=== PATIENT | male | born 1950 | race Caucasian/White ===

== ENCOUNTER → 2020-06-17 | Outpatient (CLI) | payer OTHER ==
[~2020-06-17] MED LIST: ADVAIR HFA 230M12 GM INH; ASA81BEC PO; ASPIR 8181 MG PO; ATORVASTATIN CA80 MG PO; BUSPIRONE HCL7.5 MG PO; EFFIENT10 MG PO; FAMOTIDINE 40 M40 M1 PO; FLORANEX TABLE1 EACH PO; IMDUR 30 MG TAB30 M1 PO; LIPITOR40 MG PO; LISINOPRIL2.5 MG PO; LISINOPRIL20 MG PO; METFORMIN HCL500 M3 PO; NITROGLYCERIN0.4 MG SUBLING; NITROSTAT0.4 M1 SUBLING; OMEPRAZOLE40 MG PO; TYLENOL ARTHRI650 MG PO; VOLTAREN GEL 1100 G1 TOP; ZANTAC 150MG T150 M1 PO
== END ==
LOC: ULTRA 12:28
PROVIDERS: ATTEND Surgery Vascular Surgery
DX: Z01.818 Encounter for other preprocedural examination (principal); I25.10 Atherosclerotic heart disease of native coronary artery without angina pectoris

== ENCOUNTER → 2020-06-17 | Outpatient (CLI) | payer OTHER ==
[2020-06-17 13:25] LABS: ABSOLUTE NEUTROPHILS 4.7 thou/uL (1.4-8.2); EOSINOPHILS 1.8 % (0.0-3.0); HEMATOCRIT 45.3 % (42.0-52.0); HEMOGLOBIN 15.4 gm/dL (14.0-18.0); LYMPHOCYTES 20.4 % (24.0-44.0); MCH 28.5 pg (26.0-34.0); MCHC 34.1 g/dL (28.0-37.0); MCV 83.6 fL (80.0-100.0); MONOCYTES 7.6 % (1.0-8.0); PLATELET COUNT 204 thou/uL (150-400); POLYS 69.2 % (36.0-66.0); RBC 5.41 mil/uL (4.50-6.00); RDW 14.6 % (10.5-14.5); URINE BILIRUBIN NEGATIVE (Negative); URINE BLOOD NEGATIVE (Negative); URINE CLARITY CLEAR; URINE COLOR YELLOW; URINE GLUCOSE-RANDOM* NEGATIVE (Negative); URINE KETONES NEGATIVE (Negative); URINE LEUKOCYTES-REFLEX NEGATIVE (Negative); URINE NITRITE-REFLEX NEGATIVE (Negative); URINE PROTEIN (DIPSTICK) NEGATIVE (Negative); URINE SPECIFIC GRAVITY >= 1.030 (1.005-1.035); WBC 6.8 thou/uL (4.0-11.0)
[2020-06-17 13:37] LABS: ALBUMIN 3.7 g/dL (3.4-5.0); CALCIUM 8.6 mg/dL (8.5-10.1); POTASSIUM 4.4 mmol/L (3.5-5.1); TOTAL PROTEIN 7.2 g/dL (6.4-8.2)
[2020-06-17 13:39] LABS: APTT 27.6 Seconds (24.5-32.8); PROTIME 10.9 Seconds (10.5-12.1)
[2020-06-17 23:06] LABS: GLYCOHEMOGLOBIN (HGB A1C) 7.9 % (4.8-5.6)
== END ==
LOC: PAC 09:38 → LAB 12:20 → PAC 12:20
PROVIDERS: Surgery Vascular Surgery; ATTEND Student in an Organized Health Care Education/Training Program
DX: Z01.812 Encounter for preprocedural laboratory examination (principal); Z20.822 Contact with and (suspected) exposure to COVID-19

== ENCOUNTER 2020-06-20 06:22 | Inpatient (IN) | payer OTHER ==
[~2020-06-20] VITALS: Ht 177.8 cm; Wt 106.8 kg
[2020-06-20] VITALS (8 sets, daily range): BP systolic 74–170; BP diastolic 45–93
[2020-06-20 12:56] LABS: HEMATOCRIT 27.7 % (42.0-52.0); MCH 28.7 pg (26.0-34.0); MCHC 34.4 g/dL (28.0-37.0); MCV 83.6 fL (80.0-100.0); RBC 3.31 mil/uL (4.50-6.00); RDW 14.4 % (10.5-14.5); WBC 9.9 thou/uL (4.0-11.0)
[2020-06-20 13:00] LABS: HEMOGLOBIN 9.5 gm/dL (14.0-18.0)
[2020-06-20 13:15] LABS: APTT 26.8 Seconds (24.5-32.8)
[2020-06-20 13:19] LABS: INR 1.5
[2020-06-20 14:10] LABS: POC BE -1 mmol/L (-2.0 to +3.0); POC CA IONIZED 4.8 mg/dL (4.5-5.3); POC GLUCOSE 145 mg/dL (70-99); POC HCO3 24.8 mmol/L (22.0-26.0); POC HEMOGLOBIN 13.3 g/dL (14.0-18.0); POC POTASSIUM 4.7 mmol/L (3.5-5.1); POC SODIUM 138 mmol/L (136-145); POC pCO2 46.5 mmHg (35.0-45.0); POC pH 7.335 (7.360-7.450)
[2020-06-20 14:10] LABS: POC BE -2 mmol/L (-2.0 to +3.0); POC CA IONIZED 4.3 mg/dL (4.5-5.3); POC GLUCOSE 169 mg/dL (70-99); POC HCO3 23.2 mmol/L (22.0-26.0); POC HEMOGLOBIN 10.2 g/dL (14.0-18.0); POC POTASSIUM 5.5 mmol/L (3.5-5.1); POC SODIUM 139 mmol/L (136-145); POC pH 7.393 (7.360-7.450)
[2020-06-20 14:10] LABS: POC BE 0 mmol/L (-2.0 to +3.0); POC CA IONIZED 4.3 mg/dL (4.5-5.3); POC GLUCOSE 143 mg/dL (70-99); POC HCO3 24.7 mmol/L (22.0-26.0); POC HEMOGLOBIN 10.9 g/dL (14.0-18.0); POC POTASSIUM 5.5 mmol/L (3.5-5.1); POC SODIUM 138 mmol/L (136-145); POC pCO2 39.9 mmHg (35.0-45.0); POC pH 7.399 (7.360-7.450)
[2020-06-20 14:11] LABS: POC BE 0 mmol/L (-2.0 to +3.0); POC CA IONIZED 4.3 mg/dL (4.5-5.3); POC GLUCOSE 169 mg/dL (70-99); POC HEMOGLOBIN 9.2 g/dL (14.0-18.0); POC POTASSIUM 4.7 mmol/L (3.5-5.1); POC SODIUM 140 mmol/L (136-145); POC pCO2 39.4 mmHg (35.0-45.0); POC pH 7.411 (7.360-7.450)
[2020-06-20 14:11] LABS: POC BE -1 mmol/L (-2.0 to +3.0); POC CA IONIZED 5.2 mg/dL (4.5-5.3); POC GLUCOSE 149 mg/dL (70-99); POC HCO3 24.4 mmol/L (22.0-26.0); POC HEMOGLOBIN 15.3 g/dL (14.0-18.0); POC POTASSIUM 4.6 mmol/L (3.5-5.1); POC SODIUM 139 mmol/L (136-145); POC pCO2 42.3 mmHg (35.0-45.0); POC pH 7.369 (7.360-7.450)
[2020-06-20 14:11] LABS: POC BE -5 mmol/L (-2.0 to +3.0); POC CA IONIZED 4.8 mg/dL (4.5-5.3); POC GLUCOSE 133 mg/dL (70-99); POC HCO3 20.5 mmol/L (22.0-26.0); POC HEMOGLOBIN 9.9 g/dL (14.0-18.0); POC POTASSIUM 4.3 mmol/L (3.5-5.1); POC SODIUM 142 mmol/L (136-145); POC pCO2 36.8 mmHg (35.0-45.0); POC pH 7.354 (7.360-7.450)
[2020-06-20 14:11] LABS: POC BE -1 mmol/L (-2.0 to +3.0); POC CA IONIZED 5.2 mg/dL (4.5-5.3); POC GLUCOSE 141 mg/dL (70-99); POC HCO3 24.1 mmol/L (22.0-26.0); POC HEMOGLOBIN 8.8 g/dL (14.0-18.0); POC POTASSIUM 4.2 mmol/L (3.5-5.1); POC SODIUM 140 mmol/L (136-145); POC pCO2 42.7 mmHg (35.0-45.0)
[2020-06-20 14:11] LABS: POC BE 0 mmol/L (-2.0 to +3.0); POC CA IONIZED 4.2 mg/dL (4.5-5.3); POC GLUCOSE 170 mg/dL (70-99); POC HCO3 24.7 mmol/L (22.0-26.0); POC HEMOGLOBIN 9.2 g/dL (14.0-18.0); POC SODIUM 139 mmol/L (136-145); POC pCO2 39.7 mmHg (35.0-45.0); POC pH 7.402 (7.360-7.450)
[2020-06-20 14:11] LABS: POC BE -4 mmol/L (-2.0 to +3.0); POC CA IONIZED 4.8 mg/dL (4.5-5.3); POC GLUCOSE 129 mg/dL (70-99); POC HCO3 21.8 mmol/L (22.0-26.0); POC HEMOGLOBIN 8.8 g/dL (14.0-18.0); POC POTASSIUM 4.3 mmol/L (3.5-5.1); POC SODIUM 142 mmol/L (136-145); POC pCO2 38.1 mmHg (35.0-45.0); POC pH 7.365 (7.360-7.450)
[2020-06-20 15:32] LABS: HEMATOCRIT 29.7 % (42.0-52.0); HEMOGLOBIN 10.1 gm/dL (14.0-18.0); MCH 28.3 pg (26.0-34.0); MCHC 33.9 g/dL (28.0-37.0); MCV 83.4 fL (80.0-100.0); RBC 3.56 mil/uL (4.50-6.00); RDW 14.4 % (10.5-14.5); WBC 10.6 thou/uL (4.0-11.0)
[2020-06-20 15:47] LABS: APTT 27.1 Seconds (24.5-32.8); INR 1.15; PROTIME 12.5 Seconds (10.5-12.1)
[2020-06-20 15:49] LABS: CALCIUM 8.1 mg/dL (8.5-10.1); MAGNESIUM 2.3 mg/dL (1.8-2.4); POTASSIUM 4.7 mmol/L (3.5-5.1)
[2020-06-20 16:16] LABS: BE(vivo) -6.2 mmol/L (-2 to +3); HCO3 18.4 mmol/L (22.0-26.0); PO2 93.4 mmHg (80.0-100.0); pH 7.363 (7.360-7.450)
--- NOTE | 2020-06-20 19:32 | NUR ---
1500-FROM O.R. W OH TEAM IN ATTENDANCE. BP VERY LABILE UPON ARRIVAL.--VW 1600-STARTING TO WAKE UP,FOLLOWS SIMPLE 1 STEP COMMANDS. DTR & SON AT BEDSIDE.--VW 1710-PT AWAKE,RESTLESS p KIDS LEFT. NODS YES TO PAIN,10/10 W FINGERS.BP W SUDDEN INCREASE TO 200/100'S W PA'S 50/30'S-FENTANYL GIVEN. PT ON/OFF PROPOFOL/CARDENE/SHIVANI/LEVO BPS 70'S THEN 180'S. IN UNIT &IN TO SEE PT.PT SETTELING DOWN & WILL TRY PRECEDEX. FFP & CRYO GIVEN EARLIER W/O PROBLEMS.--VW 1830- IN EARLIER TO SEE PT. SPOKE W RE:CONSULT EARLIER. PER ADRIANNA, CARDIOLOGY WILL BE CONSULTED IN AM. FIO2 TO .50% p PRECEDEX STARTED AT VERY LOW DOSE.--VW 1900-DTR MELISSA CALLED, UPDATE GIVEN. CARE TURNED OVER TO ONCOMING RN.--VW
[2020-06-20 20:05] LABS: CALCIUM 8.2 mg/dL (8.5-10.1); CREATININE 1.2 mg/dL (0.7-1.3); POTASSIUM 4.1 mmol/L (3.5-5.1)
[2020-06-20 20:14] LABS: BE(vivo) -4.4 mmol/L (-2 to +3); HCO3 19.3 mmol/L (22.0-26.0); PCO2 30.5 mmHg (35.0-45.0); PO2 101.4 mmHg (80.0-100.0); pH 7.419 (7.360-7.450); sO2 97.8 % (92.0-98.0)
[2020-06-20 21:11] LABS: BE(vivo) -3.8 mmol/L (-2 to +3); PCO2 31.7 mmHg (35.0-45.0); pH 7.418 (7.360-7.450); sO2 96.9 % (92.0-98.0)
--- NOTE | 2020-06-20 22:36 | NUR ---
Pt care assumed at 193. Hemodynamics stable, pt on Phenylnephrine 30 mcg/min for BP support. Insulin gtt being titrated to keep blood glucose between 90-170. Pt's FiO2 titrated down to 40% at 1999. Pt placed on CPAP at 2029 and tolerated well with Precedex gtt at 0.2 mcg/kg/hr. Pt extubated at 2129 and placed on Bipap 14/6, FiO2 50%. Pt's sat has remained 98-100%, respiratory rate in mid-20's. Pt's daughter, Dara, called at 2139 and updated on pt's extubation and status.
[2020-06-21] VITALS (9 sets, daily range): BP systolic 87–125; BP diastolic 45–67
--- NOTE | 2020-06-21 02:21 | NUR ---
Pt becoming bradycardic with rates dropping down to 49-56, though bouncing back up to low 70's in less than 1 minute. SBP 98-102 and urine output 25 cc over last hour. Precedex turned off, 250 cc 5% albumin given, and Phenylnephrine increased to 35 mcg/min. SBP now 116-120, heart rate 60-74. Pt drowsy but arouses easily to voice.
[2020-06-21 05:08] LABS: HEMATOCRIT 25.6 % (42.0-52.0); HEMOGLOBIN 8.7 gm/dL (14.0-18.0); MCH 28.5 pg (26.0-34.0); MCHC 33.9 g/dL (28.0-37.0); MCV 84.2 fL (80.0-100.0); RBC 3.04 mil/uL (4.50-6.00); RDW 14.4 % (10.5-14.5); WBC 8.8 thou/uL (4.0-11.0)
[2020-06-21 05:23] LABS: CALCIUM 8.1 mg/dL (8.5-10.1); CREATININE 1.1 mg/dL (0.7-1.3); MAGNESIUM 2.4 mg/dL (1.8-2.4)
--- NOTE | 2020-06-21 06:48 | EKG ---
[place] [address] [facility] [place] [address] ELECTROCARDIOGRAM REPORT Name: ANTHONY BROWN Room #: 248-P ADM IN M.R.#: [id number] Admission: 06/20/20 Attend Phys: Chaz Llanos MD Discharge: Date of : 48 Report #: [id number] [facility] Test Date: 2020-06-20 Test Time: 16:05:30 Pat Name: ANTHONY BROWN Department: Room: 248 Gender: M Insulation Cutter: FSCHWALBE : 1950 Requested By: Tray Villaseñor Order Number: [id number] : Russel Reed Measurements Intervals [place] Rate: 80 P: 47 ME: 186 QRS: -5 QRSD: 100 T: 15 QT: 401 QTc: 463 Interpretive Statements Sinus rhythm Low voltage, precordial leads No previous ECG available for comparison Electronically Signed On 06-21-2020 6:48:07 CDT by Russel Reed [email or web address] <ELECTRONICALLY SIGNED> By: Russel Reed MD, [facility] 06/21/20 0648 1605 1605 Russel Reed MD, FACC /EPI
--- NOTE | 2020-06-21 07:30 | NUR ---
DR. CRUZ AND ADRIANNA PITTMAN HERE. UPDATE GIVEN. EKG SHOWN TO ADRIANNA PITTMAN. ORDERS GIVEN. PT CURRENTLY IN CHAIR POSITION. WEANING OFF SHIVANI. WILL STOP INSULIN GTT PER ORDERS. PT REPORTS PAIN TOLORABLE AT 2 OF 10
--- NOTE | 2020-06-21 07:30 | NUR ---
Updated pt daughter Dara. Emotional support given.
--- NOTE | 2020-06-21 07:39 | NUR ---
Slow progress toward goals. Pt tolerates Bipap well, currently on 01/13 with FiO2 of 35%. Able to take break x1 hour on 4 L nasal canula but then desaturated down to 89-90% and was placed back on Bipap. Remains on Phenylnephrine to keep SBP >90. Monitor remains sinus rhythm with BBB since Amiodorone and Precedex dc'd. Remains on insulin gtt to control blood glucose. Urine output adequate, 619 cc for this shift. Mediastinal CT x2 to -20 mmHg had 240 cc serosanguinous drainage this shift, no air leak or crepitus. Left plural CT x1 to -20 mmHg had 50 cc sanguinous drainage, no air leak or crepitus.
--- NOTE | 2020-06-21 07:49 | NUR ---
S/P CABG on 06/20. Will address nutrition education needs once stable and out of ICU
--- NOTE | 2020-06-21 09:00 | NUR ---
Pt sister called for update. Marilee Bowser given update.
--- NOTE | 2020-06-21 09:15 | NUR ---
taken off Bipap for pills. 6L nasal cannula. Tolorating well. Ate some jello and drank apple juice and nino mist.
[2020-06-21 09:53] LABS: FOLIC ACID 10.4 ng/mL (8.6-58.9)
--- NOTE | 2020-06-21 12:00 | EKG ---
[place] [address] [facility] [place] [employer] [place] [address] ELECTROCARDIOGRAM REPORT Name: ANTHONY BROWN Room #: 248-P ADM IN M.R.#: [id number] Admission: 06/20/20 Attend Phys: Chaz Llanos MD Discharge: Date of : 48 Report #: [id number] [facility] Test Date: 2020-06-21 Test Time: 07:41:06 Pat Name: ANTHONY BROWN Department: Room: 248 P Gender: M Turf Sales Person: JOSE ELIAS : 1950 Requested By: Tray Villaseñor Order Number: [id number] MD: Russel Reed Measurements Intervals [place] Rate: 80 P: 11 RI: 138 QRS: -9 QRSD: 100 T: -44 QT: 391 QTc: 451 Interpretive Statements Sinus rhythm Abnormal R-wave progression, early transition Left ventricular hypertrophy Inferior infarct, age indeterminate Compared to ECG 06/20/2020 16:05:30 Left ventricular hypertrophy now present Myocardial infarct finding now present Electronically Signed On 06-21-2020 12:00:21 CDT by Russel Reed [email or web address] <ELECTRONICALLY SIGNED> By: Russel Reed MD, [facility] 06/21/20 1200 0 0 Russel Reed MD, [facility] /EPI
--- NOTE | 2020-06-21 12:00 | NUR ---
PT DAUGHTER HERE. UPDATE GIVEN. CORRECT CODE GIVEN. NO INSULIN FOR LUNCH SINCE PT HAS BEEN EATING JELLO, ICEES ETC RECENTLY. PT DID NOT WANT SOLID FOOD FOR LUNCH.
--- NOTE | 2020-06-21 12:16 | NUR ---
pod # 1 cabg. cm visited with pt at bedside after am rounds and los. he up in chair with physical therapy assistance. daughter who is resp therapist here at bedside visiting. jacek goes by abiel, he lives in mobile house, no steps, has ramp. independent, drives vehicle, he takes his neighbored lady friend to run errands. no rehab or hh in past, have walker with seat that do not use. no anticipated dc over the weekend. education on rehab, hh and outpt rehab. will cont following as needed for dc needs.
--- NOTE | 2020-06-21 18:28 | NUR ---
end of shift note. Pt OOB to chair. Tolorating well. Poor appitite but drinking health shakes. Pain under control with hydrocodone.
[2020-06-22] VITALS (25 sets, daily range): BP systolic 100–155; BP diastolic 45–76
[2020-06-22 05:06] LABS: HEMATOCRIT 23.7 % (42.0-52.0); HEMOGLOBIN 8.1 gm/dL (14.0-18.0); MCH 28.3 pg (26.0-34.0); MCHC 33.9 g/dL (28.0-37.0); MCV 83.3 fL (80.0-100.0); RBC 2.85 mil/uL (4.50-6.00); RDW 14.5 % (10.5-14.5); WBC 7.3 thou/uL (4.0-11.0)
[2020-06-22 05:20] LABS: ALBUMIN 2.9 g/dL (3.4-5.0); CALCIUM 7.8 mg/dL (8.5-10.1); POTASSIUM 3.7 mmol/L (3.5-5.1); TOTAL BILIRUBIN 1.6 mg/dL (0.2-1.0); TOTAL PROTEIN 5.5 g/dL (6.4-8.2)
--- NOTE | 2020-06-22 10:00 | NUR ---
DR. CRUZ STATES TO LEAVE PT DUNBAR IN UNTIL FLOMAX HAS HAD TIME TO WORK. UPDATE GIVEN.
--- NOTE | 2020-06-22 10:25 | O ---
[facility] [place] [address] OPERATIVE REPORT Name: ANTHONY BROWN Room #: 248-P [facility] IN M.R.#: [id number] Admission: 06/20/20 Attend Phys: Chaz Llanos MD Discharge: Date of : 48 Report #: [id number] THIS REPORT FOR: cc: Cory Cano Steven D. DO Forman, John M. MD ~ DOC #: [id number] Chaz Llanos MD DATE OF SERVICE: 06/20/2020 PREOPERATIVE DIAGNOSIS: Coronary artery disease. POSTOPERATIVE DIAGNOSIS: Coronary artery disease. OPERATIONS: Coronary artery bypass x 4 including left internal mammary artery to left anterior descending artery, saphenous vein to diagonal and marginal, and saphenous vein to posterior descending artery and endoscopic harvest left greater saphenous vein. SURGEON: Dr. Chaz Llanos. TIMEKEEPING SUPERVISOR: MICK Ambrocio ANESTHESIA: General. INDICATIONS: The patient is a 69-year-old with coronary artery disease, seen by Dr. Rivera. The patient has a tight distal left main stenosis that involves the origin of the LAD. The patient also has in-stent stenosis of previous LAD stent, right coronary has moderate disease. Left ventricular function is satisfactory, but the patient has both obstructive and restrictive lung disease. FINDINGS AND TECHNIQUES: After general anesthesia was established, saphenous vein was harvested using an endoscopic approach and prepared for use as a conduit. Exposure was obtained through median sternotomy. Left internal mammary artery was harvested from chest wall. Pericardial well was made. Cannulation sutures were placed. Heparin was given. Aorta was cannulated. Right atrium was cannulated. Cardioplegia needle was positioned in the aortic root. Retrograde cardioplegic catheter was placed in the coronary sinus. Cardiopulmonary bypass was established. Aorta was cross clamped. Antegrade and retrograde cardioplegia were given. Ice was poured in the pericardial well. The heart was stopped. During electromechanical arrest, the distal anastomoses were performed. An end-to-side anastomosis was made between vein and the posterior descending [facility] [address] [place] [address] OPERATIVE REPORT Name: ANTHONY BROWN Room #: 248-P [facility] IN M.R.#: [id number] Admission: 06/20/20 Attend Phys: Chaz Llanos MD Discharge: Date of : 48 Report #: [id number] artery. Cold cardioplegia was given. Separate segment of vein was sewn in end-to-side fashion to the large second marginal artery. Cold cardioplegia was given. Same segment of vein was sewn in end-to-side fashion to the diagonal artery. Cold cardioplegia was given. Two proximal anastomoses were performed. When these were complete, warm retrograde cardioplegia was given followed by warm continuous blood through the coronary sinus. When this infusion was complete, the crossclamp was removed. De-airing maneuvers were performed and anastomoses were inspected and found to be satisfactory. As the patient warmed, nice cardiac activity resumed, chest tubes and pacing wires were placed. A marker was placed in proximal anastomosis. When the patient was warmed, he was weaned from cardiopulmonary bypass. Venous cannula was removed. Protamine was given, the aortic cannula was removed. Flows were measured in the bypass grafts. When hemostasis was satisfactory, chest was irrigated with antibiotic solution and closed in the usual fashion. The patient was taken to the intensive care unit in satisfactory condition, having tolerated the procedure well. All counts were reported as correct. Chaz Llanos MD JF/ALL <ELECTRONICALLY SIGNED> By: Chaz Llanos MD 06/22/20 1025 1507 1535 Chaz Llanos MD /nt
[2020-06-22 17:29] LABS: URINE BILIRUBIN NEGATIVE (Negative); URINE BLOOD 2+ (Negative); URINE CLARITY CLEAR; URINE COLOR YELLOW; URINE GLUCOSE-RANDOM* 1+ (Negative); URINE KETONES TRACE (Negative); URINE LEUKOCYTES-REFLEX NEGATIVE (Negative); URINE NITRITE-REFLEX NEGATIVE (Negative); URINE PROTEIN (DIPSTICK) 1+ (Negative); URINE SPECIFIC GRAVITY >= 1.030 (1.005-1.035); URINE UROBILINOGEN 0.2 E.U./dl (0.2-1.0)
[2020-06-22 17:37] LABS: CASTS None Seen /LPF (None Seen); SQUAMOUS None Seen /LPF (0-3); URINE RBC 3-10 Few /HPF (NONE SEEN); URINE WBC-REFLEX None Seen /HPF (0-5)
[2020-06-22 17:38] LABS: BACTERIA-REFLEX None Seen /HPF (None Seen); CRYSTALS None Seen /LPF (None Seen)
--- NOTE | 2020-06-22 18:14 | NUR ---
Pt progressing towards goals. Stronger today. Walked around the bed with PT and this RN. Less anxious. Unable to wean 02. Pushing IS and coughing and deep breathing. Aurelia remains in per Dr. Llanos's request. Pleural output recorded.
[2020-06-23] VITALS (14 sets, daily range): BP systolic 101–142; BP diastolic 47–63
--- NOTE | 2020-06-23 06:00 | NUR ---
PT AWAKE AND ALERT NEURO INTACT A RATHER FLAT AFFECTAT TIMES SINUS RHYTHM PT REFUSED TO GET BACK IN BED. REMAINED UP IN CHAIR ALL NIGHT. TITRATED O2 DOWN TO 2 LITERS NC. LUNGS DIMINISHED BILAT. EXCELLENT COUGH EFFORT NON PRODUCTIVE. STERNAL DRESSING WITH WOUND VAC LEFT PLEURAL TUBE 100 CC OUT AND DUNBAR 550 CC OUT. CHEST AND LEFT LEG DRESSINGS INTACT. HAD A SMALL LIGHT BROWN LIQ STOOL THIS AM. BATHED. PROGRESSING TOWARD GOALS. WILL CONT TO MONITOR.
--- NOTE | 2020-06-23 10:46 | NUR ---
4622- Report was called to DENILSON Figueroa on CCU for continuation of nursing care services once patient transfered. Patient going from room 248 in ICU, to room 213 in CCU. 1000- Patient called his daughter on her phone to inform her of patients room change, she did not answer phone call. Nurse to try again. 1020- Patient transferred to CCU via chair. He was transferred with cell phone, gifted program teacher, computer, computer gifted program teacher, glasses, dentures, and other belongings. [place] double checked for any further belongings. He was transferred on 3 Liters nasal cannula, with cardiac monitoring system, chest tubes, and wound vac system. He was hooked up to wall suction for the chest tube, wound vac plugged in, oxygen connected to hurt, and his close belongings with him. He had his call light with him and chair alarm in place when RN left the room.
--- NOTE | 2020-06-23 17:32 | NUR ---
PT CARE ASSUMED AT 1020. ASSESSMENTS CHARTED. MEDICATIONS CHARTED. RH IV. SINUS RHYTHM. WOUND VAC TO MID STERNUM. CABG X4. TRANSFER FROM 248 ICU TO 213 CCU. LT PLEURAL CHEST TUBE. PACER WIRES; PRESENT AND CAPPED. IS AT 1000 ML. BSC: BM, SM SEMI LIQUID. DIET-CC, FLUID RESTRICTION OF 2000 ML.
--- NOTE | 2020-06-24 03:59 | NUR ---
PT BEEN RESTING IN NO ACUTE DISTRESS.A/OX4.VSS.S/P CABG X4 POD#5.WOUND VAC ON STERNUM INCISION TO SUCTION.CT INTACT TO SUCTION.UP W/ASSIST.REMAINS ON O2 AT 2LITERS PNC,SATS [place],SR ON MONITOR.REPORTED MILD PAIN OF 3/10,PAIN MEDS OFFERED BUT DECLINED.DENIES CHEST PAIN,SOA OR ANY OTHER CONCERNS.PT/OT ON BOARD.
[2020-06-24 04:08] VITALS: BP 123/56
[2020-06-24 04:48] LABS: ALBUMIN 2.6 g/dL (3.4-5.0); CALCIUM 8.2 mg/dL (8.5-10.1); CREATININE 0.9 mg/dL (0.7-1.3); POTASSIUM 3.8 mmol/L (3.5-5.1); TOTAL BILIRUBIN 1.3 mg/dL (0.2-1.0); TOTAL PROTEIN 5.8 g/dL (6.4-8.2)
[2020-06-24 04:51] LABS: ABSOLUTE NEUTROPHILS 5.8 thou/uL (1.4-8.2); BASOPHILS 0.4 % (0.0-2.0); EOSINOPHILS 2.4 % (0.0-3.0); HEMATOCRIT 26.4 % (42.0-52.0); HEMOGLOBIN 8.8 gm/dL (14.0-18.0); LYMPHOCYTES 11.6 % (24.0-44.0); MCH 28.2 pg (26.0-34.0); MCHC 33.5 g/dL (28.0-37.0); MCV 84.3 fL (80.0-100.0); MONOCYTES 8.8 % (1.0-8.0); PLATELET COUNT 154 thou/uL (150-400); POLYS 76.8 % (36.0-66.0); RBC 3.13 mil/uL (4.50-6.00); RDW 14.9 % (10.5-14.5); WBC 7.5 thou/uL (4.0-11.0)
[2020-06-24 07:20] VITALS: BP 111/53
--- NOTE | 2020-06-24 08:53 | EKG ---
[address] [place] [place] [address] ELECTROCARDIOGRAM REPORT Name: ANTHONY BROWN Room #: 213-P ADM IN M.R.#: [id number] Admission: 06/20/20 Attend Phys: Chaz Llanos MD Discharge: Date of : 48 Report #: [id number] [facility] Test Date: 2020-06-24 Test Time: 07:11:33 Pat Name: ANTHONY BROWN Department: Room: 213 P Gender: M Senior Loss Control Specialist: JOSE ELIAS : 1950 Requested By: Chaz Llanos Order Number: [id number] MD: Eduardo Roman Measurements Intervals [place] Rate: 81 P: 25 AK: 123 QRS: -10 QRSD: 99 T: -31 QT: 441 QTc: 512 Interpretive Statements Sinus rhythm Borderline T abnormalities, inferior leads Prolonged QT interval Compared to ECG 06/21/2020 07:41:06 Prolonged QT interval now present Electronically Signed On 06-24-2020 8:52:55 CDT by Eduardo Roman [email or web address] <ELECTRONICALLY SIGNED> By: Eduardo Roman MD, [facility] 06/24/20 0852 0 0 Eduardo Roman MD, FACC /EPI
[2020-06-24 11:00] VITALS: BP 125/59
[2020-06-24 16:15] VITALS: BP 117/56
--- NOTE | 2020-06-24 17:09 | NUR ---
spoke with dtr and patient. Dtr feels patient needs post acute care. She is unable to assist at home for patient. He resides alone and dtr feels he needs cont therapy in skilled rehab. Dtr reports she is trying to change her work schedule to accomadate helping patient at home but unable at this time. Emailed post acute list to dtr and gave list to patient to review.
[2020-06-24 19:43] VITALS: BP 113/53
[2020-06-25 03:31] VITALS: BP 131/53
--- NOTE | 2020-06-25 04:44 | NUR ---
PT BEEN RESTING IN NO ACUTE DISTRESS.A/OX3 W/FORGETFULNESS.VSS.S/P CABGX4 POD#5.STERNUM INCISION INTACT WITH WOUND VAC TO SUCTION.TOLERATED BIPAP FOR ABOUT 3HRS.UP W/ASSIST TO BR.AMBULATED IN THE ROOM,HUBER NOTED.O2 AT 2LITERS PNC WHILE SLEEPING.PT DENIES PAIN AT THIS TIME.PT PROGRESSING FAIRLY TOWARDS DISCHARGE GOALS.
[2020-06-25 07:27] VITALS: BP 120/55
--- NOTE | 2020-06-25 10:31 | NUR ---
Assess for length of stay. S/P CABG. Hx diabetes, A1C 7.9%. Visit with pt this am, voiced exhausted. Eating well 50-100% of meals and likes the glucerna shakes so will continue to offer. Pt not interested in nutrition education at this time. Has written materials for home. Low nutrition risk
[2020-06-25 10:44] VITALS: BP 113/47
--- NOTE | 2020-06-25 14:04 | NUR ---
Dtr called this am. Left dtr message of return call. Sister Marilee Bowser called and reports dtr of patient Dara works nights and asked sister to assist with dc planning. Sister reports she not in best health and cannot assist with care of patient in home. She has [facility] list and reviewed with dtr. Interest in [facility] and [facility]. Referral and call placed to their admissions to review.
[2020-06-25 15:05] VITALS: BP 123/60
--- NOTE | 2020-06-25 17:12 | NUR ---
assessment as charted - meds as per mar - no co's of pain or nausea - veronica diet and fluids - pt states he feels he does not have much of an appitite. accuchecks as charted - covered per ssi prn. pt seen by phys therapy - ambulated in the halls - seen by cardiac rehab. wound vac remians insitu - dressing to la lag c/d/i. new iv place to left hand patient pulled old iv out. up to the bathroom to stool and \clean up this am- no co's at the present time.
--- NOTE | 2020-06-25 17:19 | NUR ---
Referrals to [facility] and [facility]. Discussed with patient post acute care and referrals sent for review. Sp with dtr this afternoon. her first choice is [facility]. Messaged liason to submit for auth if accepted. Faxed referral packet to [facility] as well. Reviewed visitor policy for [facility] with dtr.
[2020-06-25 20:15] VITALS: BP 119/61
[2020-06-26 04:45] VITALS: BP 102/59
--- NOTE | 2020-06-26 05:55 | NUR ---
ASSUME CARE 1900. PT/VITALS STABLE. DENIES ANY PAIN. MDERATE TOLERANCE TO ACTIVITY. PT IN RECLINER FOR THE WHOLE NIGHT. POOR TOLERANCE TO BIPAP, ADEQUATE SPO2 ON ROOM AIR. ASSESSMENT CHARTED. PROGRESSING WELL WITH POC. SR ON MONITOR/NO DISTRESS NOTED. PLAN IS TO CONSULT INPATIENT REHAB FOR EVALUATION AND TREATMENT, UNTIL SNF PLACEMENT IS FOUND. WILL CONTINUE TO MONITOR AND FOLLOW WITH POC
[2020-06-26 07:49] VITALS: BP 130/58
[2020-06-26 11:27] VITALS: BP 117/63
--- NOTE | 2020-06-26 12:40 | NUR ---
ASSESSMENT A CHARTED - MEDS PER GALILEA REYNOLDS DIET AND FLUIDS- UP WITH CARDIAC REHAB AND PHYS THERAPY - AMBUALATING IN WINTERS - SOB WITH EXERTION. ACCUCHECKS CHARTED - REPORT GIVEN TO NURSE AND CARE TRANSFERED AT 1100.
--- NOTE | 2020-06-26 13:14 | HC ---
[facility] [place] [address] CONSULTATION Name: ANTHONY BROWN Room #: 213-P ADM IN M.R.#: [id number] Admission: 06/20/20 Attend Phys: Patrick Merritt MD Discharge: Date of : 48 Report #: [id number] THIS REPORT FOR: cc: Cory Cano Steven D. DO Blick, David R. MD [facility] ~ DOC #: [id number] Rolando Caballero MD [facility] DATE OF SERVICE: 06/24/2020 HISTORY OF PRESENT ILLNESS: The patient is a 69-year-old single white male who I was asked to see in the hospital today after he had coronary artery bypass surgery. The patient has a long history of hypertension and smoking. He presented last in 11/2018 with a non-STEMI at [place]. He had stents placed in the LAD as well as a circumflex. Since that time, he continues to complain of shortness of breath and chest pain. Dr. Vazquez performed repeat cardiac catheterization that showed an 80% narrowing of the left main artery and a high-grade stenosis of the LAD and right coronary artery. Ejection fraction 60%. He referred the patient to Dr. Chaz Llanos who saw the patient in the office on 06/12/2020. He recommended coronary bypass surgery. The patient was admitted electively here to [facility] on 06/20/2020 and underwent quadruple coronary bypass surgery including VAZQUEZ graft to the LAD with vein graft to the posterior descending artery, marginal artery and diagonal artery. He was subsequently extubated. He was transferred out of the intensive care unit. He is now in the CCU recovering. He has been ambulating short distances. He has noted some soreness of his chest, but denies any heaviness, shortness of breath, cough, palpitations or syncope. PAST MEDICAL AND SURGICAL HISTORY: Otherwise, he has had cholecystectomy, wrist surgery, hypertension, hyperlipidemia, COPD. CURRENT MEDICATIONS: Include aspirin, Lipitor, lisinopril, omeprazole. He stopped Effient 5 days prior to admission. ALLERGIES: He has no known drug allergies. FAMILY HISTORY: Negative for heart disease. SOCIAL HISTORY: He is . He and his live in [place]. He is a retired sheet rock nailer. Quit smoking 7 years ago. No alcohol abuse. REVIEW OF SYSTEMS: No history of stroke. He does have COPD and uses inhaler. No history of liver disease, kidney disease, cancer. He saw a psychiatrist in the past for depression when he was . No chronic skin condition. PHYSICAL EXAMINATION: [address] [address] CONSULTATION Name: ANTHONY BROWN Room #: 213-P [facility] IN M.R.#: [id number] Admission: 06/20/20 Attend Phys: Patrick Merritt MD Discharge: Date of : 48 Report #: [id number] GENERAL: Revealed an elderly male, lying in bed, appeared in no acute distress. VITAL SIGNS: Blood pressure 120/60, pulse is 80. He is afebrile. HEENT: He was anicteric. Conjunctivae pink. Mucosa moist. NECK: Veins not appear distended. No carotid bruits. CHEST: Clear to auscultation. HEART: Regular rate and rhythm. ABDOMEN: Soft. EXTREMITIES: No edema. SKIN: Cool and dry. NEUROLOGIC: Nonfocal. LABORATORY DATA: His postop ECG shows a sinus rhythm with nonspecific ST segment changes. His chest x-ray postoperatively done today, small effusion, otherwise unremarkable. His lab work, sodium 138, creatinine 0.9. His hemoglobin is now 8.8, it was 15 on admission. His COVID test was negative. IMPRESSION AND RECOMMENDATIONS: 1. Coronary artery disease. Since the patient had a stent placed more than a year ago, I would resume Effient when okay with Dr. Llanos. I would continue aspirin a day. 2. Coronary bypass surgery. The patient appears to be doing well. He will need to limit lifting for 3 months following sternotomy. 3. Hypertension. The patient has been on LOUISE inhibitor. 4. Hyperlipidemia. The patient is on a statin drug. 5. Chronic obstructive pulmonary disease. The patient uses an inhaler. 6. Obesity. I would enroll in cardiac rehabilitation. Rolando Caballero MD [facility] BERNARDO/CAROLE <ELECTRONICALLY SIGNED> By: Rolando Caballero MD, [facility] 06/26/20 1314 1626 0153 Rolando Caballero MD, [facility] /nt
[2020-06-26] MEDS ORDERED: FLOMAX0.4 MG PO (14:11)
[2020-06-26] MEDS ORDERED: FERREX 150 PLU1 EAC1 PO (14:11)
[2020-06-26] MEDS ORDERED: METOPROLOL SUCC50 MG PO (14:12)
[2020-06-26] MEDS ORDERED: B-12500 MCG PO (14:13)
[2020-06-26] MEDS ORDERED: LISINOPRIL5 MG PO (14:13)
[2020-06-26] MEDS ORDERED: FOLIC ACID1 MG PO (14:14)
--- NOTE | 2020-06-26 15:18 | NUR ---
PT RESTING COMFORTABLY IN CHAIR/BED. STERNAL WOUND VAC IN PLACE AT PRESCRIBED SETTINGS, NO AIR LEAKS PRESENT. PT EDUCATED ON STERNAL PRECAUTIONS. HARVEST SITE ON LEFT LOWER EXTREMITY IS WELL APPROXIMATED, DRESSING IS C/D/I, NO S/S OF HEMORRHAGE OR INFECTION. PT REFUSED PHYSICAL THERAPY TODAY. PLAN IS HAVE WOUND VAC TAKEN DOWN IN 1 WEEK. PT IS TO BE TRANSFERED TO [facility] [phone] BY VAN-WHEELCHAIR. PT AFEBRILE, ADEQUATE UOP, 1 BM, APPROPRIATE APPETITE, NO C/O PAIN. PT HAS BEEN UPDATED AND EDUCATED ON CONDITION AND POC. PT SLOWLY PROGRESSING TOWARDS POC.
--- NOTE | 2020-06-26 15:31 | NUR ---
Patient to discharge today. Sp with dtr this am. She reports concern with cough. She works nights and planned to return home to sleep. she reports to update sister Aster. Dr Merritt attempted to call Aster but no answer. Dr Merritt ordered chest xray regarding cough. Sp with Aster alerted dtr had concern for cough, phys ordered xray. Xray read and patient stable to discharge. Updated Aster patient will discharge today and transition to [facility]. Faxed orders and covid results to [facility]. They rec orders. RN to call report. REquested [facility] conteh call dtr and leave message on her cell phone any copay and benefit info at dtrs request. kory van arranged by [facility] for [phone] updated patient who is in agreement.
[2020-06-26 16:03] VITALS: BP 103/61
== END 2020-06-26 18:17 | DRG 235 ==
LOC: ICU 06:22 → TBA 06:22 → 2N 06:22 → PRE 15:47 → ICU 15:52 → PRE 16:25 → 2N 06-23 10:52
PROVIDERS: Physician Assistant; Surgery Vascular Surgery; ADMIT Internal Medicine; ATTEND Internal Medicine
PROC: 5A09357 Assistance with Respiratory Ventilation, Less than 24 Consecutive Hours, Continuous Positive Airway Pressure (ICD-10-PCS; principal; 2020-06-20)
PROC: 5A1221Z Performance of Cardiac Output, Continuous (ICD-10-PCS; 2020-06-20)
PROC: 02100Z9 Bypass Coronary Artery, One Artery from Left Internal Mammary, Open Approach (ICD-10-PCS; 2020-06-20)
PROC: 021209W Bypass Coronary Artery, Three Arteries from Aorta with Autologous Venous Tissue, Open Approach (ICD-10-PCS; 2020-06-20)
PROC: 06BQ4ZZ Excision of Left Saphenous Vein, Percutaneous Endoscopic Approach (ICD-10-PCS; 2020-06-20)
PROC: 05HY33Z Insertion of Infusion Device into Upper Vein, Percutaneous Approach (ICD-10-PCS; 2020-06-20)
PROC: 5A09357 Assistance with Respiratory Ventilation, Less than 24 Consecutive Hours, Continuous Positive Airway Pressure (ICD-10-PCS; 2020-06-21)
DX: I25.10 Atherosclerotic heart disease of native coronary artery without angina pectoris (principal); N17.0 Acute kidney failure with tubular necrosis; E44.0 Moderate protein-calorie malnutrition; F32.9 Major depressive disorder, single episode, unspecified; R91.1 Solitary pulmonary nodule; K21.9 Gastro-esophageal reflux disease without esophagitis; N18.9 Chronic kidney disease, unspecified; E11.22 Type 2 diabetes mellitus with diabetic chronic kidney disease; I12.9 Hypertensive chronic kidney disease with stage 1 through stage 4 chronic kidney disease, or unspecified chronic kidney disease; E78.5 Hyperlipidemia, unspecified; J44.9 Chronic obstructive pulmonary disease, unspecified; E66.9 Obesity, unspecified; D50.0 Iron deficiency anemia secondary to blood loss (chronic); Z20.822 Contact with and (suspected) exposure to COVID-19; Z90.49 Acquired absence of other specified parts of digestive tract; I25.2 Old myocardial infarction; Z79.82 Long term (current) use of aspirin; Z79.899 Other long term (current) drug therapy; Z87.891 Personal history of nicotine dependence; Z68.33 Body mass index [BMI] 33.0-33.9, adult
CPT/HCPCS: 10078; 10081; 47000; 47001; 47002; 47297; 48889; 50010; 50249; 50643; 50668; 51301; 52131; 52259; 52287; 53327; 53358; 54118; 56455; 56524; 56525; 56526; 56527; 56528; 56531; 56534; 56668; 56719; 56760; 56898; 57093; 57167; 57242; 62110; 62950; 65003; 65020; 65090; 65120; 65135